=== PATIENT | male | born 1985 ===

== ENCOUNTER 2018-10-09 05:44 | Emergency (ER) | payer OTHER ==
[2018-10-09] MEDS ORDERED: Sodium Chloride 0.9% 1,000 ML IV STA ×2 (06:10→07:11)
--- NOTE | 2018-10-09 06:21 | ED PDOC ---
HPI: Fever Time Seen by Provider: 10/09/18 05:57 Additional Comments: 32 year old male with no past medical history presents to the ED with fever, dizziness, full body aches and nobloody vomiting onset x12 hours and cough onset x2 months. Patient denies diarrhea, sick contacts, or any other medical complaints. PMD: none provided Past Medical History Reviewed: Historical Data, Nursing Documentation, Vital Signs Vital Signs: Last Vital Signs Temp 102.1 F H 10/09/18 05:47 Pulse 136 H 10/09/18 05:47 Resp 21 10/09/18 05:47 BP 118/55 L 10/09/18 05:47 Pulse Ox 95 10/09/18 05:47 - Medical History PMH: No Chronic Diseases - Surgical History Surgical History: Appendectomy - Family History Family History: States: Unknown Family Hx - Home Medications Home Medications: Ambulatory Orders Medication Instructions Recorded Cyclobenzaprine [Cyclobenzaprine 10 mg PO BID #15 tab 07/25/16 HCl] Ibuprofen [Motrin Tab] 600 mg PO Q6 #30 tab 07/25/16 - Allergies Allergies/Adverse Reactions: Allergies Allergy/AdvReac Type Severity Reaction Status Date / Time No Known Allergies Allergy Verified 07/24/16 23:26 Review of Systems ROS Statement: Except As Marked, All Systems Reviewed And Found Negative Constitutional: Positive for: Fever, Other (body ache) Respiratory: Positive for: Cough Gastrointestinal: Positive for: Vomiting. Negative for: Diarrhea Physical Exam - Reviewed Nursing Documentation Reviewed: Yes Vital Signs Reviewed: Yes - Physical Exam Appears: Positive for: No Acute Distress (shivering ) Head Exam: Positive for: ATRAUMATIC, NORMOCEPHALIC Skin: Positive for: Diaphoresis Eye Exam: Positive for: Normal appearance, EOMI, PERRL ENT: Positive for: Pharynx Is (clear), TM Is/Are (unremarkable), Other (dry lips) Neck: Positive for: Normal, Painless ROM Cardiovascular/Chest: Positive for: Regular Rate, Rhythm. Negative for: Murmur Respiratory: Positive for: Normal Breath Sounds. Negative for: Respiratory Distress Gastrointestinal/Abdominal: Positive for: Normal Exam, Soft. Negative for: Tenderness Extremity: Positive for: Normal ROM (upper and lower). Negative for: Pedal Edema, Deformity Neurologic/Psych: Positive for: Alert, Oriented (x3) - Laboratory Results Result Diagrams: 10/09/18 06:31 - ECG O2 Sat by Pulse Oximetry: 95 (RA) Pulse Ox Interpretation: Normal Medical Decision Making Medical Decision Making: Time: 0558 Workup for viral illness Plan: --Chest x-ray --Toradol --Tylenol --IV fluids --Zofran --Influenza --labs 700 Pt pending labs and CXR. Pt to be signed out to Dr. Guevara. ---- Scribe Attestation: Documented by Mer Alvarez, acting as a scribe for Patricia Richards MD. Provider Scribe Attestation: All medical record entries made by the Scribe were at my direction and personally dictated by me. I have reviewed the chart and agree that the record accurately reflects my personal performance of the history, physical exam, medical decision making, and the department course for this patient. I have also personally directed, reviewed, and agree with the discharge instructions and disposition. Disposition - Clinical Impression Clinical Impression: Fever - Patient ED Disposition Is Patient to be Admitted: Transfer of Care - Disposition Disposition: Transfer of Care Disposition Time: 06:59 Condition: STABLE Forms: [employer] (Iraqi)
[2018-10-09 06:47] LABS: ALBUMIN 4.8 g/dL (3.5-5.0); BLOOD UREA NITROGEN 13 mg/dl (9-20); CALCIUM 10.1 mg/dL (8.4-10.2); GFR NON-AFRICAN AMERICAN > 60
[2018-10-09 06:48] LABS: ALB/GLOB RATIO 1.5 (1.0-2.1); ALT/SGPT 62 U/L (21-72); AST/SGOT 32 U/L (17-59)
[2018-10-09 06:52] LABS: BASO % 0.2 % (0.0-2.0); EOS % 0.3 % (0.0-4.0); HEMOGLOBIN 15.1 g/dL (12.0-18.0); LYMPH # 0.9 K/uL (1.0-4.3); MEAN CELL VOLUME 77.1 fl (80.0-94.0); MEAN CORPUSCULAR HEMOGLOBIN 26.1 pg (27.0-31.0); MEAN CORPUSCULAR HGB CONC 33.8 g/dL (33.0-37.0); MEAN PLATELET VOLUME 8.7 fl (7.2-11.7); MONO # 0.8 K/uL (0.0-0.8); MONO % 5.8 % (0.0-10.0); NEUT # 11.7 K/uL (1.8-7.0); NEUT % 86.7 % (50.0-75.0); NRBC % 0.4 % (0.0-0.0); PLATELET COUNT 232 K/uL (130-400); RBC 5.79 Mil/uL (4.40-5.90); RED CELL DISTRIBUTION WIDTH 14.1 % (11.5-14.5); WHITE BLOOD COUNT 13.4 K/uL (4.8-10.8)
--- NOTE | 2018-10-09 07:08 | ED PDOC ---
- Laboratory Results Result Diagrams: 10/09/18 06:31 10/09/18 06:31 Lab Results: Total Bilirubin 0.6 mg/dl (0.2-1.3) 10/09/18 06:31 AST 32 U/L (17-59) 10/09/18 06:31 ALT 62 U/L (21-72) 10/09/18 06:31 Alkaline Phosphatase 82 U/L (38-126) 10/09/18 06:31 Total Protein 8.1 G/DL (6.3-8.2) 10/09/18 06:31 Albumin 4.8 g/dL (3.5-5.0) 10/09/18 06:31 Globulin 3.3 gm/dL (2.2-3.9) 10/09/18 06:31 Albumin/Globulin Ratio 1.5 (1.0-2.1) 10/09/18 06:31 - ECG O2 Sat by Pulse Oximetry: 95 (RA) Pulse Ox Interpretation: Normal - Progress Re-evaluation Time: 10:35 Condition: Re-examined, Improved Medical Decision Making Medical Decision Makin Patient endorsed by Dr. Richards, pending labs and reevaluation. Scribe Attestation: Documented by Lavonne Sawyer, acting as a scribe for Vick Guevara MD. Provider Scribe Attestation: All medical record entries made by the Scribe were at my direction and person ally dictated by me. I have reviewed the chart and agree that the record accurately reflects my personal performance of the history, physical exam, medical decision making, and the department course for this patient. I have also personally directed, reviewed, and agree with the discharge instructions and disposition. Disposition Doctor Will See Patient In The: Office Counseled Patient/Family Regarding: Diagnosis, Need For Followup - Clinical Impression Clinical Impression: Fever, Flu-like symptoms - POA Present On Arrival: None - Disposition Referrals: [facility] [Outside] Disposition: Routine/Home Disposition Time: 10:00 Condition: IMPROVED Additional Instructions: KIYA DELEON, thank you for letting us take care of you today. Your provider was Vick Guevara MD and you were treated for FEVER,BODY ACHES. The emergency medical care you received today was directed at your acute symptoms. If you were prescribed any medication, please fill it and take as directed. It may take several days for your symptoms to resolve. Return to the Emergency Department if your symptoms worsen, do not improve, or if you have any other problems. Please contact your doctor or call one of the physicians/clinics you have been referred to that are listed on the Patient Visit Information form that is included in your discharge packet. Bring any paperwork you were given at discharge with you along with any medications you are taking to your follow up visit. Our treatment cannot replace ongoing medical care by a primary care provider outside of the emergency department. Thank you for allowing the [facility] team to be part of your care today. If you had an X-Ray or CT scan: A Radiologist will review the ED reading if any change in treatment is needed we will contact you. If you had a blood, urine, or wound culture: It will take several days for the results, if any change in treatment is needed we will contact you. If you had an STI test: It will take 48 hours for the results. Please call after 1 week if you have not heard back. Prescriptions: RX: Ibuprofen [Motrin Tab] 600 mg PO Q6 #30 tab Ondansetron ODT [Zofran ODT] 4 mg PO Q8 PRN #12 odt PRN Reason: Nausea/Vomiting Instructions: Viral Syndrome (DC) Forms: [employer] (German)
--- NOTE | 2018-10-09 07:37 | RAD ---
Date of service: 10/09/2018 HISTORY: cough COMPARISON: Chest radiographs 02/11/2014. TECHNIQUE: PA and lateral views submitted for interpretation. FINDINGS: LUNGS: Somewhat diminished inspiratory volume. No acute consolidation bilaterally. Small calcified granuloma again noted upper left lung zone laterally. This is seen only in the PA projection. PLEURA: No significant pleural effusion identified. No pneumothorax apparent. CARDIOVASCULAR: No aortic atherosclerotic calcification present. Normal cardiac size. No pulmonary vascular congestion. OSSEOUS STRUCTURES: No significant abnormalities. VISUALIZED UPPER ABDOMEN: Normal. OTHER FINDINGS: None. IMPRESSION: Somewhat diminished inspiratory volume. No acute infiltrate, pleural effusion or pulmonary vascular congestion appreciated in the interval nevertheless.
[2018-10-09 10:48] LABS: BANDS 1 % (0-2); LYMPHOCYTE 5 % (20-50); MONOCYTE 6 % (0-10); NEUTROPHIL 88 % (42-75); PLATELET ESTIMATE NORMAL (NORMAL); TOTAL CELLS COUNTED 100
[2018-10-09 11:05] VITALS: BP 102/59; PULSE 98; RESP 18; TEMP 98.1
[2018-10-12 14:14] VITALS: O2SAT 95
== END 2018-10-09 10:45 | disposition home or self-care (01) ==
LOC: H.ER 05:44
DX: R50.9 Fever, unspecified (principal); J11.1 Influenza due to unidentified influenza virus with other respiratory manifestations
CPT/HCPCS: 71046; 80053; 85025; 87804; 96361; 96374; 96375; 99285; J1885; J2405; J7030